=== PATIENT | female | born 1990 | race Caucasian/White ===

== ENCOUNTER 2020-09-24 23:47 | Observation (INO) | payer BC ==
[2020-09-25 03:32] VITALS: BMI 26.7
[2020-09-25] MEDS ORDERED: Acetaminophen 325 MG TAB PO PRN (03:50)
[2020-09-25] MEDS ORDERED: Ondansetron PF 4 MG/2 ML Vial IVP PRN (03:50)
[2020-09-25] MEDS ORDERED: Nitroglycerin 0.4 MG TAB (25 Tab Bottle) SL PRN (03:50)
[2020-09-25] MEDS: Ibuprofen 800 MG TAB PO SCH ×3 (05:13→21:57)
[2020-09-25 05:38] LABS: #Eosinphils 0.1 thou/uL (0.0-0.7); #Monocytes 0.7 thou/uL (0.11-0.59); %Basophils 0.4 % (0.0-1.0); %Eosinophils 0.8 % (0.0-10.0); %Lymphocytes 29.4 % (21.0-51.0); %Monocytes 10.7 % (0.0-10.0); %Neutrophils 58.7 % (42.0-75.0); Mean Corpuscular HGB CONC 31.1 g/dL (32.0-36.0); Mean Corpuscular Hemoglobin 26.7 pg (27.0-31.0); Mean Corpuscular Volume 85.7 fL (78.0-98.0); Mean Platelet Volume 6.7 fL (7.4-10.4); Platelet Count 273 thou/uL (130-400); RBC Distribution Width 12.2 % (11.5-14.5); Red Blood Cell (RBC) Count 4.49 mill/uL (4.20-5.40); White Blood Cell (WBC) Count 6.8 thou/uL (4.8-10.8)
[2020-09-25 05:57] LABS: Anion Gap 10 mmol/L (10-20); BUN (Urea Nitrogen) 13 mg/dL (7.0-18.7); CRP (Inflammatory) Less than 0.50 mg/dL (= or < 0.5); Calc. Creatinine Clearance 154 mL/min (70-130); Calcium 8.2 mg/dL (7.8-10.44); Carbon Dioxide 21 mmol/L (22-29); Chloride 107 mmol/L (98-107); Glucose 109 mg/dL (70-105); Potassium 3.4 mmol/L (3.5-5.1); Sodium 135 mmol/L (136-145)
[2020-09-25 06:04] LABS: Troponin I Less than 0.010 ng/mL (< 0.028)
[2020-09-25 08:43] LABS: SARS-CoV-2 PCR by NAA Not Detected (NotDetected)
[2020-09-25 09:08] LABS: Troponin I 0.013 ng/mL (< 0.028)
[2020-09-25] MEDS: Famotidine 20 MG TAB PO SCH ×2 (10:28→21:58)
[2020-09-25] MEDS: Morphine 4 MG/ML VIAL SLOW IVP PRN (19:55)
[2020-09-26 06:19] LABS: #Eosinphils 0.1 thou/uL (0.0-0.7); #Lymphocytes 1.9 thou/uL (1.20-3.40); #Monocytes 0.4 thou/uL (0.11-0.59); #Neutrophils 2.2 thou/uL (1.40-6.50); %Eosinophils 1.6 % (0.0-10.0); %Lymphocytes 40.6 % (21.0-51.0); %Monocytes 9.5 % (0.0-10.0); %Neutrophils 47.4 % (42.0-75.0); Hemoglobin 11.8 g/dL (12.0-16.0); Mean Corpuscular HGB CONC 30.6 g/dL (32.0-36.0); Mean Corpuscular Hemoglobin 26.4 pg (27.0-31.0); Mean Corpuscular Volume 86.2 fL (78.0-98.0); Mean Platelet Volume 6.6 fL (7.4-10.4); Platelet Count 252 thou/uL (130-400); Red Blood Cell (RBC) Count 4.48 mill/uL (4.20-5.40); White Blood Cell (WBC) Count 4.6 thou/uL (4.8-10.8)
[2020-09-26 06:47] LABS: Anion Gap 10 mmol/L (10-20); BUN (Urea Nitrogen) 15 mg/dL (7.0-18.7); Calc. Creatinine Clearance 149 mL/min (70-130); Calcium 7.8 mg/dL (7.8-10.44); Carbon Dioxide 23 mmol/L (22-29); Chloride 108 mmol/L (98-107); Glucose 91 mg/dL (70-105); Sodium 137 mmol/L (136-145)
[2020-09-26] MEDS: Ibuprofen 800 MG TAB PO SCH ×3 (07:03→21:30)
[2020-09-26] MEDS: Famotidine 20 MG TAB PO SCH ×3 (08:29→21:31)
[2020-09-26] MEDS ORDERED: Regadenoson 0.4 MG/5 ML SYRINGE ONE (12:38)
[2020-09-26] MEDS ORDERED: Communication Order-Pharmacy FS SCH (14:00)
[2020-09-26] MEDS: Morphine 4 MG/ML VIAL SLOW IVP PRN ×2 (14:52→21:31)
[2020-09-27 00:18] LABS: BHCG - Serum Negative (NEGATIVE); Pregs Control Background? CLEAR/WHITE (CLR/WHITE); Pregs Control Bar Appear? YES (CONTROL BAR)
[2020-09-27] MEDS: Famotidine 20 MG TAB PO SCH (05:19)
[2020-09-27] MEDS: Ibuprofen 800 MG TAB PO SCH (05:20)
[2020-09-27 06:05] LABS: #Eosinphils 0.1 thou/uL (0.0-0.7); #Lymphocytes 2.2 thou/uL (1.20-3.40); #Monocytes 0.6 thou/uL (0.11-0.59); #Neutrophils 2.7 thou/uL (1.40-6.50); %Basophils 0.6 % (0.0-1.0); %Eosinophils 2.5 % (0.0-10.0); %Lymphocytes 38.9 % (21.0-51.0); %Monocytes 9.8 % (0.0-10.0); %Neutrophils 48.1 % (42.0-75.0); Hemoglobin 12.3 g/dL (12.0-16.0); Mean Corpuscular HGB CONC 31.6 g/dL (32.0-36.0); Mean Corpuscular Hemoglobin 27.1 pg (27.0-31.0); Mean Corpuscular Volume 85.9 fL (78.0-98.0); Mean Platelet Volume 6.8 fL (7.4-10.4); Platelet Count 260 thou/uL (130-400); Red Blood Cell (RBC) Count 4.54 mill/uL (4.20-5.40); White Blood Cell (WBC) Count 5.6 thou/uL (4.8-10.8)
[2020-09-27 06:23] LABS: Anion Gap 11 mmol/L (10-20); BUN (Urea Nitrogen) 16 mg/dL (7.0-18.7); Calc. Creatinine Clearance 143 mL/min (70-130); Calcium 8.4 mg/dL (7.8-10.44); Carbon Dioxide 22 mmol/L (22-29); Chloride 107 mmol/L (98-107); Glucose 90 mg/dL (70-105); Potassium 4.1 mmol/L (3.5-5.1); Sodium 136 mmol/L (136-145)
[2020-09-27] MEDS ORDERED: Lidocaine 1% (PF) 30 ML VIAL ONE (07:54)
[2020-09-27] MEDS ORDERED: Midazolam HCl 2 mg/2 ml Vial ONE (08:32)
[2020-09-27] MEDS ORDERED: Nitroglycerin 100MG/250ML BOT 250 ML ONE (08:54)
[2020-09-27] MEDS ORDERED: Nitroglycerin 0.4 MG TAB (25 Tab Bottle) SL PRN (09:01)
[2020-09-27] MEDS ORDERED: Sodium Chloride 0.9% 200 ML IV PRN (09:01)
[2020-09-27] MEDS ORDERED: Acetaminophen/Codeine 30-300mg Tablet PO PRN ×2 (09:01)
[2020-09-27] MEDS ORDERED: Iopamidol 370 76% 100 ML VIAL ONE (09:03)
[2020-09-27 11:38] VITALS: BP 119/66; TEMP 98.1
[2020-09-27] MEDS: Morphine 4 MG/ML VIAL SLOW IVP PRN (11:49)
== END 2020-09-27 16:05 | disposition home or self-care (01) ==
LOC: ERS 23:47 → 2SW 09-25 01:37
PROVIDERS: ADMIT Internal Medicine; ATTEND Internal Medicine
PROC: 4A023N7 Measurement of Cardiac Sampling and Pressure, Left Heart, Percutaneous Approach (ICD-10-PCS; principal; 2020-09-27)
PROC: B2111ZZ Fluoroscopy of Multiple Coronary Arteries using Low Osmolar Contrast (ICD-10-PCS; 2020-09-27)
DX: R07.89 Other chest pain (principal); R94.39 Abnormal result of other cardiovascular function study; Z79.899 Other long term (current) drug therapy; Z20.822 Contact with and (suspected) exposure to COVID-19
CPT/HCPCS: 36415; 78452; 80048; 84484; 84703; 85025; 86140; 87635; 93005; 93017; 93306; 93458; 94760; 96374; 96376; 99152; A9500; G0378; J2001; J2250; J2270; J2785; Q9967; U0003; U0005